=== PATIENT | male | born 1995 | race Caucasian/White ===

== ENCOUNTER → 2018-08-15 15:23 | Outpatient (CLI) | payer OTHER, SELFPAY ==
[2018-08-15 17:11] LABS: Urine N gonorrhoeae NOT DETECTED
[2018-08-15 17:31] LABS: Urine Chlamydia NOT DETECTED
== END ==
PROVIDERS: Visit Provider Physician Assistant
DX: N50.819 Testicular pain, unspecified (principal)
CPT/HCPCS: 87491; 87591